=== PATIENT | female | born 1935 | race Caucasian/White ===

== ENCOUNTER → 2018-04-05 | Outpatient (CLI) | payer MEDICARE ==
[~2018-04-05] MED LIST: FURO20TA19 PO; HTN MED; LISI20TA29 PO
--- NOTE | 2018-04-05 14:47 | RADIOLOGY IMAGING REPORT ---
FACILITY: [facility] PATIENT NAME: Kat Garcia : 1935 MR: [id number] V: [id number] EXAM DATE: ORDERING PHYSICIAN: LUIGI GAYLE TECHNOLOGIST: Location: [facility] Patient: Kat Garcia : 1935 Visit/Account:[id number] Date of Sevice: 04/05/2018 DEXA Scan Clinical history: Postmenopausal. Comparison: None available. LUMBAR SPINE: The bone mineral density (BMD) measured from L1-L3 correlates with a Z-score 0.9 and a T-score of by 0.5 which is Normal as defined by the World Health Organization. The corresponding risk of fracture in the lumbar spine is 1-2 times increased compared with a young adult reference population. HIP: Bone mineral density (BMD) measured in the Left total hip region correlates with a Z-score 0.5 and a T-score of -1.4 which is osteopenia as defined by the World Health Organization. The corresponding r isk of fracture in the hip is 2-3 times increased compared with a young adult reference population. T score left femoral neck -1.7 Bone mineral density (BMD) measured in the Femoral Neck region measures 0.799 g/cm2. Impression: 1. Lumbar spine: Normal. 2. Left Hip: Osteopenia. 3. Femoral Neck: Bone Mineral Density is 0.799 g/cm2 The next DEXA scan of this patient should include the following sites: L1-L4 and the left hip. FRAX? WHO Fracture Risk Assessment Tool link: <http://www.shef.ac.uk/FRAX/tool.jsp?locationValue=9> PLEASE NOTE: 1) The World Health Organization defines low BMD as follows: T-score Normal > -1 Osteopenia < -1 and > -2.5 Osteoporosis < -2.5 without fractures Established osteoporosis < -2.5 with fractures 2) In general, you may wish to consider: Diagnosis Treatment Follow-up DEXA Normal BMD Prevention 2-3 years Osteopenia Prevention/therapy 1-2 years Osteoporosis Therapy Yearly 3) Fracture risk estimated from the T-score is more accurate for vertebral fractures (often spontane ous) than for hip fractures. Report Dictated By: Jaimee Barakat MD at 04/05/2018 2:42 PM Report E-Signed By: Jaimee Barakat MD at 04/05/2018 2:43 PM KENDALLN:ANNY
== END ==
LOC: MAMO 00:30
PROVIDERS: ATTEND Physician Assistant
DX: Z12.31 Encounter for screening mammogram for malignant neoplasm of breast (principal); M85.80 Other specified disorders of bone density and structure, unspecified site; N95.8 Other specified menopausal and perimenopausal disorders
CPT/HCPCS: 77063; 77067; 77080

== ENCOUNTER → 2018-06-19 | Outpatient (RCR) | payer MEDICARE ==
--- NOTE | 2018-03-22 16:07 | PT INITIAL EVALUATION ---
MEDICAL DIAGNOSIS: ankle pain, shoulder pain, muscle weakness TREATMENT DIAGNOSIS: same, neck pain, and low back pain DATE OF ONSET: 01/18/18 SUBJECTIVE: Kat Garcia presents to physical therapy with complaints of R sided pain following a fall in her bathroom approximately 2 months ago. She reports that she broke her R ankle approximately 30 years ago and as a result she states that the ankle motion has been limited ever since. She reports that since the fall her whole R side has been becoming more painful and she has noticed a drop in strength as well. She reports that she also has low back pain and feels like the pain is radiating from her low back all the way down to her foot. She states that the pain goes down her R leg on the outside and occasionally on the back side of her R leg. She also reports that she has neck pain and feels like the pain might be radiating from her neck to her elbow and occasionally into her R hand. She reports that her low back pain is the one she wants to work on first and then transition to her cervical spine. She reports that her low back pain becomes worse with sitting, standing, and walking. She reports that her low back pain is better with upright posture and lying. She does reports abnormal bladder control in the last two months (red flag). She denies any weight loss. Pain location is L4-5 Central and described as achy. REHAB PROBLEM LIST: Increased Pain Decreased ROM Decreased Strength Decreased Endurance Decreased Balance Decreased Function Decreased ADL's Decreased Mobility Decreased Gait PREVIOUS MEDICAL HISTORY: See EMR OCCUPATION: Retired OBJECTIVE: Posture: She demonstrates forward head, increased thoracic kyphosis, and decreased lumbar lordosis. ROM: Trunk AROM: flexion: NIL with painful end feel. extension: moderate restriction with painful end feel. side gliding R: moderate restriction with painful end feel. side gliding L: moderate restriction with painful end feel. Will look and R shoulder, R ankle, and cervical ROM in the future Strength: We will test shoulder UE strength in the future. R hip flexion, abduction, adduction, extension, R knee flexion and extension, and R ankle DF and PF: 4-/5. L hip flexion, abduction, adduction, extension, L knee flexion and extension, and L ankle DF and PF: 4+/5 Palpation: TTP: central L4-5 with radiating pain down lateral thigh, lateral knee, and into lateral ankle/foot. She is also TTP: over cervical spine, anterior R shoulder and R elbow. Sensation: Decreased sensation B L5 dermatomes otherwise intact from L2-4 and S1-2 Special Tests: Repeated extension in lying: pain during the test and better following the test with increased trunk AROM in all directions following. Repeated flexion in lying: pain during the test and worse following the test with decreased trunk AROM in all directions following. We will test out R shoulder, ankle, and cervical spine in the future. Mobility: Modified independent Gait: She demonstrated forward trunk lean, increased thoracic kyphosis along with cervical flexion, decreased velocity, decreased B step lengths, increased base of support, decreased pelvic rotation, increased double limb support, and decreased swing phases of gait. ASSESSMENT: Kat will benefit from skilled physical therapy addressing the listed impairments to improve function and QOL. Based on her subjective reports, I feel like the pain might be radiating from the cervical spine and lumbar spine and based on my examination today it appears that she does have low back pain radiating down the R LE and she demonstrated positive signs such as centralization and increased trunk AROM following repeated extension, which would place her in the current classification of derangement. So moving forward, I wanted to verify that the pain is not radiating from either the cervical spine or the lumbar spine and if the pain is not radiating from either place we will assess and treat her R side (shoulder and ankle) to improve strength, range of motion, and return to prior level of function. Short Term Goals 2 weeks: Pt will demonstrate centralized and abolished low back pain to improve function and QOL. 4 weeks: Pt will demonstrate directional preference with hopefully centralized cervical neck pain to improve function and QOL. 6 weeks: Pt will demonstrate full R shoulder PROM-AROM in all directions without any pain to improve function and QOL. 8 weeks: Pt will demonstrate significant improvements in R UE and LE strength from baseline to 4+/5 or greater to improve function and QOL. 10 weeks: Pt will demonstrate a significant improvement in gait mechanics with decreased antalgic gait and return to walking her usual distances to improve function and QOL. Patient's Goals improve pain, improve strength, get back to her walking program. PLAN: Patient to be seen for Manual Therapy/STM/MET Strengthening/condition Ice/Heat Range of Motion Spinal Stabilization Work Hardening/Cond Stretching Neuromuscular Re-ed Closed Chain Program Electrical Stim Posture/Body mechanics Gait Trg/Balance Trg Home Exercise Program Therapeutic Activities 2x/week for 12 weeks If you have any questions, comments, or concerns about this report or plan, please contact me at . Thank you, Alfa Henderson, PT, DPT [facility]
--- NOTE | 2018-05-15 15:10 | PT PLAN OF CARE ---
Physician: ELEANOR Katz Patient is being seen: 2x/week Therapist: Alfa Henderson, PT, DPT Medical Diagnosis: ankle pain, shoulder pain, muscle weakness Treatment Diagnosis: same, neck pain, and low back pain Date of Onset: 01/18/18 Date of Initial Evaluation: 03/21/18 Date patient was last seen: 05/15/18 Number of treatments: 10 Number of cancellations/No shows: 3 INTERVENTIONS: Manual Therapy/STM/MET Strengthening/condition Ice/Heat Range of Motion Spinal Stabilization Work Hardening/Cond Stretching Neuromuscular Re-ed Closed Chain Program Electrical Stim Posture/Body mechanics Gait Trg/Balance Trg Home Exercise Program Therapeutic Activities GOALS: 2 weeks: Pt will demonstrate centralized and abolished low back pain to improve function and QOL. MET 4 weeks: Pt will demonstrate directional preference with hopefully centralized cervical neck pain to improve function and QOL. MET 6 weeks: Pt will demonstrate full R shoulder PROM-AROM in all directions without any pain to improve function and QOL. Not Met 8 weeks: Pt will demonstrate significant improvements in R UE and LE strength from baseline to 4+/5 or greater to improve function and QOL. Not Met 10 weeks: Pt will demonstrate a significant improvement in gait mechanics with decreased antalgic gait and return to walking her usual distances to improve function and QOL. Progressing PATIENT'S GOAL: improve pain, improve strength, get back to her walking program. Status of Patient's Goals: Progressing well Patient Compliance: Good Prognosis: Fair Reasons for continuing therapy: This is a progress note for Kat Garcia. She reports that her low back pain is doing much better. She reports that her R ankle continues to be bothersome and continues to have difficulty with walking and standing. She demonstrates increased trunk AROM in all directions with continued directional preference into extension. She continues to demonstrate independent with her specific exercise and utilizing her lumbar support during sitting. She continues to demonstrate increased R gluteal, hamstring, quads, and gastroc/soleus weakness that we continue to strengthen, which will continue to improve gait mechanics and overall function. She demonstrates significant improvements in gait mechanics with decreased Trendelenburg with cane. We will continue to reduce pain, increase function, increased B UE and B LE strength, increased gait mechanics, and return to prior level of function. Posture: She demonstrates forward head, increased thoracic kyphosis, and decreased lumbar lordosis. ROM: Trunk AROM: flexion: NIL with painful end feel. extension: minimal restriction with muscular end feel. side gliding R: NIL with muscular end feel. side gliding L: NIL with muscular end feel. Strength: . R hip flexion, abduction, adduction, extension, R knee flexion and extension, and R ankle DF and PF: 4/5. L hip flexion, abduction, adduction, extension, L knee flexion and extension, and L ankle DF and PF: 4+/5 Special Tests: Repeated extension in lying: pain during the test and better following the test with increased trunk AROM in all directions following. Repeated flexion in lying: pain during the test and worse following the test with decreased trunk AROM in all directions following. We will test out R shoulder, ankle, and cervical spine in the future. Mobility: Modified independent If you have any questions, please contact me at [phone]. Thank you, Alfa Henderson, PT, DPT [place]
== END ==
LOC: PT 03-21 09:04
PROVIDERS: ATTEND Physician Assistant
DX: M54.5 Low back pain (principal); M54.2 Cervicalgia; M25.571 Pain in right ankle and joints of right foot; M25.511 Pain in right shoulder; M62.81 Muscle weakness (generalized)
CPT/HCPCS: 97163

== ENCOUNTER 2018-07-24 09:45 | Outpatient (RCR) | payer MEDICARE ==
--- NOTE | 2018-06-21 18:55 | PT PLAN OF CARE ---
Physician: ELEANOR Katz Patient is being seen: 2x/week Therapist: Alfa Henderson, PT, DPT Medical Diagnosis: ankle pain, shoulder pain, muscle weakness Treatment Diagnosis: same, neck pain, and low back pain Date of Onset: 01/18/18 Date of Initial Evaluation: 03/21/18 Date patient was last seen: 06/21/18 Number of treatments: 15 Number of cancellations/No shows: 4 INTERVENTIONS: Manual Therapy/STM/MET Strengthening/condition Ice/Heat Range of Motion Spinal Stabilization Work Hardening/Cond Stretching Neuromuscular Re-ed Closed Chain Program Electrical Stim Posture/Body mechanics Gait Trg/Balance Trg Home Exercise Program Therapeutic Activities GOALS: 2 weeks: Pt will demonstrate centralized and abolished low back pain to improve function and QOL. MET 4 weeks: Pt will demonstrate directional preference with hopefully centralized cervical neck pain to improve function and QOL. MET 6 weeks: Pt will demonstrate full R shoulder PROM-AROM in all directions without any pain to improve function and QOL. Not Met 8 weeks: Pt will demonstrate significant improvements in R UE and LE strength from baseline to 4+/5 or greater to improve function and QOL. Not Met 10 weeks: Pt will demonstrate a significant improvement in gait mechanics with decreased antalgic gait and return to walking her usual distances to improve function and QOL. Progressing PATIENT'S GOAL: improve pain, improve strength, get back to her walking program. Status of Patient's Goals: Progressing well Patient Compliance: Good Prognosis: Fair Reasons for continuing therapy: This is a progress note for Kat Garcia. She reports that she is doing so much better. She reports that she feels like she is standing more upright while ambulating. She reports that she feels like her R leg is getting stronger. She reports that she feels like her shoulder is doing so much better and only hurts when she moves it a certain direction and states that the pain does not last for more than a few seconds. She continues to progress well with increased upright posture during functional activities, increased R LE strength and is becoming closer to the L LE strength, increased endurance, increased ability to go up and down stairs, continued directional preference with R shoulder with increased shoulder AROM in all directions and equal to L shoulder motions, We will continue to improve functional strength, endurance, abolish R shoulder pain along with abolish low back pain and return to prior level of function. Posture: She demonstrates forward head, increased thoracic kyphosis, and decreased lumbar lordosis. ROM: Trunk AROM: flexion: NIL with painful end feel. extension: minimal restriction with muscular end feel. side gliding R: NIL with muscular end feel. side gliding L: NIL with muscular end feel. Strength: . R hip flexion, abduction, adduction, extension, R knee flexion and extension, and R ankle DF and PF: 4/5 t o 4+/5. L hip flexion, abduction, adduction, extension, L knee flexion and extension, and L ankle DF and PF: 4+/5 Special Tests: Repeated extension in lying: pain during the test and better following the test with increased trunk AROM in all directions following. Repeated flexion in lying: pain during the test and worse following the test with decreased trunk AROM in all directions following. Mobility: Modified independent If you have any questions, please contact me at [phone]. Thank you, Alfa Henderson, PT, DPT [place]
== END 2018-07-24 18:00 | disposition home or self-care (01) ==
LOC: PT 09:45
PROVIDERS: ATTEND Physician Assistant
DX: R53.1 Weakness (principal); M25.572 Pain in left ankle and joints of left foot; I10 Essential (primary) hypertension; M25.519 Pain in unspecified shoulder